=== PATIENT | female | born 1965 | race Caucasian/White ===

== ENCOUNTER 2024-03-25 09:55 | Emergency (ER) | payer BC, SELFPAY ==
[2024-03-25 09:56] VITALS: BP 141/73
[2024-03-25 10:00] VITALS: BP 135/74
[2024-03-25 10:01] VITALS: BP 135/74; BMI 22.4
--- NOTE | 2024-03-25 10:07 | ED.GENMED ---
History of Present Illness
General
Chief Complaint: Allergic Reaction
Source: patient and ambulance crew
Exam Limitations: none
Time Seen by Provider: 03/25/24 10:04
Nursing documentation reviewed up to this point in time: agreed with
Travel History
Have you had any contact with someone who has COVID-19?: No
Do you have any symptoms of coronavirus? Fever > 100 degrees, chills, cough, shortness of breath, sore throat, loss of taste or smell, muscle aches, or headache?: No
History of Present Illness
History of Present Illness:
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
thigh, she presents via EMS with swollen lips, hoarse voice, mild wheeze, EMS gave a DuoNeb treatment en route, pulse ox maintains 100%.
Patient states her lip swelling is improving, she still feels 'a little bit wheezy,' and has some upper chest pressure.
She has an EpiPen she hasn't picked up waiting for her at her pharmacy.
Past History
Past History
ED Past Medical History: Other (allergy to peas)
ED Past Surgical History: None
Social History
Tobacco: Non-smoker
Alcohol: Occasional
Review of Systems
Review of Systems
Allergies reviewed?: Yes
All Other Systems: ROS reviewed and negative except as documented in HPI and ROS
Constitutional: Denies fever
EENT: Reports sore throat (throat tingling resolved)
Respiratory: Denies trouble breathing
Cardiac: Reports chest pain (mild mid upper chest pressure); Denies diaphoresis, palpitations or syncope
ABD/GI: Denies abdominal pain or nausea
Musculoskeletal: Reports no symptoms
Skin: Reports no symptoms
Neurological: Reports no symptoms
Phy Exam
Physical Exam
Physical Exam:
GENERAL: No acute distress. A&Ox3.
CONSTITUTIONAL: Afebrile.
EYES: PERRL, conjunctivae normal
ENMT: moist mucus membranes, Pharynx nl, lips mildly swollen, voice hoarse
RESPIRATORY: Regular respirations, nonlabored, lungs w mild wheezes left upper field. otherwise clear. Pulse ox 100% RA
CARDIOVASCULAR: Regular rate and rhythm, no murmurs, no rubs.
GI: Soft, nontender, normal BS
MUSCULOSKELETAL: Moves with ease. Well perfused.
SKIN: Warm, dry, pink
PSYCH: Normal mood and affect. Well kept, interactive and appropriate
NEUROLOGIC: Awake, alert and oriented. No focal neurological deficits
Course
Orders/Labs/Results
Orders:
Orders
03/25/24 10:04
Dexamethasone Sod Phosphate [Decadron] 10 mg IV NOW STA
Diphenhydramine [Benadryl] 50 mg PO NOW STA
Famotidine [Pepcid] 20 mg IV NOW STA
03/25/24 10:05
Ipratropium/Albuterol Sulfate [Duoneb] 3 ml INH R NOW STA
03/25/24 10:07
Electrocardiogram (*1) Urgent
Reason for Study: Chest Pain
EKG- Treatment ONCE
Vital Signs
Initial and Last Documented VS:
Initial Vital Signs
BP
141/73
03/25/24 09:56
Last Documented Vital Signs
Temp Pulse Resp BP Pulse Ox
98.5 F 88 15 135/74 100
03/25/24 10:01 03/25/24 10:45 03/25/24 10:45 03/25/24 10:01 03/25/24 10:15
MDM/Problems Addressed
Differential Diagnosis Includes:
allergic reaction, anaphylaxis
MDM/Problems Addressed:
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
thigh, she presents via EMS with swollen lips, hoarse voice, mild wheeze, EMS gave a DuoNeb treatment en route, pulse ox maintains 100%.
Patient states her lip swelling is improving, she still feels 'a little bit wheezy,' and has some upper chest pressure.
She has an EpiPen she hasn't picked up waiting for her at her pharmacy.
10:50 a.m.
Feeling much better, lips back to normal.
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
*Critical Care Note
Total Time (30-74mins, 75-104mins- exclusive of procedures): Not Applicable
ED Attending Note
-
Portions of this chart may have been created with voice recognition software.� Occasional wrong word or��sound alike� substitutions may have occurred due to the inherent limitations of voice recognition software.
Discharge Plan
Departure
Patient Disposition: Home (Routine Discharge)
Date of Disposition: 03/25/24
Time of Disposition: 10:53
Patient with high blood pressure during this ER visit?: No
Condition: Good
Discharge Problem:
Allergic reaction
Instructions: Allergic Reaction ED
Prescriptions:
New
prednisone 20 mg tablet
40 mg PO DAILY Qty: 6 0RF
Referrals:
Mahad Lucero MD [Family Provider] - As needed
Activity Restrictions/Additional Instructions:
As we discussed, I sent a prescription to your pharmacy for prednisone, take 40 mg a day for 3 days.
job superintendent your EpiPen and keep available
Interventions
Interventions:
*Risk Screen - Suicide Last Done: 03/25/24 10:01
*General Assessment Last Done: 03/25/24 10:01
*Neglect/Abuse Screening Last Done: 03/25/24 10:01
ED- Fall Risk Assessment Last Done: 03/25/24 10:01
*ED COVID-19 Vaccine History Last Done: 03/25/24 10:01
*Nursing Disposition Last Done: 03/25/24 10:59
ED- Cardiac Assessment Last Done: 03/25/24 10:01
ED- Pulmonary Assessment Last Done: 03/25/24 10:01
ED-Skin Assessment Last Done: 03/25/24 10:01
Discharge Date and Time
Discharge Date/Time: 03/25/24 11:03
Print Language: PASHTO
[2024-03-25] MEDS: DECADRON 10 MG IV (10:10)
[2024-03-25] MEDS: PEPCID 20 MG IV (10:10)
[2024-03-25] MEDS: DUONEB 3 ML INH (10:10)
[2024-03-25] MEDS: BENADRYL 50 MG PO (10:17)
== END 2024-03-25 11:03 | disposition home or self-care (01) ==
LOC: EMR 09:55
PROVIDERS: EMERGENCY PHYSICIAN Emergency Medicine; FAMILY PHYSICIAN Internal Medicine
DX: T78.40XA Allergy, unspecified, initial encounter (principal); X58.XXXA Exposure to other specified factors, initial encounter
CPT/HCPCS: 99283; 94640; 96374; 96375; 93005